=== PATIENT | male | born 1975 | race Caucasian/White ===

== ENCOUNTER 2020-02-27 14:50 | Emergency (ER) | payer OTHER ==
--- NOTE | 2020-02-27 15:32 | RAD ---
XR Foot Lt 3 View STANDARD HISTORY: Injury, foot pain FINDINGS: There is a minimally displaced oblique fracture involving the proximal shaft of the third metatarsal.
== END 2020-02-27 16:33 | disposition home or self-care (01) ==
LOC: ERS 14:50
DX: S92.332A Displaced fracture of third metatarsal bone, left foot, initial encounter for closed fracture (principal); W20.8XXA Other cause of strike by thrown, projected or falling object, initial encounter